=== PATIENT | female | born 2000 | race Caucasian/White ===

== ENCOUNTER 2022-07-05 21:50 | Emergency (ER) | payer OTHER, MEDICAID, SELFPAY ==
[2022-07-05 21:57] VITALS: BP 141/79; PULSE 90; RESP 15; TEMP 36.6; O2SAT 99; BMI 48.2
[2022-07-06 02:22] LABS: Basophils # 0.1 10^3/uL (0.0-0.1); Basophils % 0.6 %; Eosinophils # 0.1 10^3/uL (0.0-0.8); Eosinophils % 1.4 %; Hematocrit 40.8 % (37.0-47.0); Lymphocytes # 3.9 10^3/uL (0.8-4.8); Lymphocytes % 42.9 %; Mean Corpuscular HGB Conc 31.9 g/dL (30.0-36.0); Mean Corpuscular Hemoglobin 27.8 pg (28.0-34.0); Mean Corpuscular Volume 87.4 fl (81-99); Monocytes # 0.3 10^3/uL (0.2-0.9); Monocytes % 3.5 %; Neutrophils # 4.66 10^3/uL (1.8-7.7); Neutrophils % 51.4 %; Nucleated Red Blood Cells % 0 %; Platelet Count 242 10^3/cmm (130-400); Red Blood Count 4.67 10^6/uL (4.1-5.3); Red Cell Distribution Width 12.6 % (12.1-15.1); White Blood Count 9.1 10^3/uL (4.0-10.0)
--- NOTE | 2022-07-06 02:25 | W.ED.ABDPA2 ---
HPI - Abdominal Pain General: Chief Complaint: Abdominal Pain Stated Complaint: abdomen pain Time Seen by Provider: 07/06/22 02:06 Source: patient History of Present Illness: 22-year-old female. She presents with epigastric and right upper quadrant abdominal pain. She has had this since May 09 she says. Its been decently constant. [place] is [place] near [place], and had several tests run in [facility]. Prior work-up includes CT, gallbladder ultrasound, endoscopy, and HIDA scan. She is supposed to follow-up with her doctors. She is down here visiting family. She notes worsening of her pain. Denies fever. She is thrown up several times this evening. she is just wanting some symptom control at this point. MD elicited complaint: abdominal pain Pertinent past history: other Onset (ago): hour(s) Pain Consistency: constant Location: Epigastric and RUQ Quality: cramping and stabbing Migration to: no migration Exacerbating factors: vomiting Relieving factors: nothing Associated Symptoms: Reports diarrhea, nausea and vomiting; Denies bloating, dysuria, fever(s) and hematemesis Review of Systems Const: Denies: fever(s) Eyes: Denies: change in vision Card: Denies: chest pain or palpitations Resp: Denies: dyspnea, productive cough or non-productive cough GI: Reports: nausea, vomiting and diarrhea; Denies: hematemesis or bloating : Denies: dysuria Physical Exam Const: COMMON NORMALS: no acute distress GENERAL APPEARANCE: cooperative; not ill appearing and not frail appearing HENMT: COMMON NORMALS: normocephalic, atraumatic and Normal external nose present HEAD & SCALP: normocephalic and atraumatic FACE & SINUS: normal facial exam and face symmetric NOSE: Normal external nose present Eye: COMMON NORMALS: Equal, round and reactive pupils present and EOMs intact bilaterally PUPIL: Yes Equal, round and reactive pupils present Neck/C-Spine: GENERAL: Yes trachea midline Chest: CHEST: Yes Symmetrical chest wall rise Resp: COMMON NORMALS: normal respiratory effort, No retractions, No use of accessory muscles and clear to auscultation bilaterally AUSCULTATION: clear to auscultation bilaterally Cardio: COMMON NORMALS: regular rate and regular rhythm RATE: regular rate RHYTHM: regular rhythm GI: COMMON NORMALS: Normal to inspection, nondistended, normoactive bowel sounds present PALPATION: Yes Tenderness to palpation present (GI) Details: RUQ Extremity: COMMON NORMALS: no pedal edema Neuro: [place]MITA COMA SCALE: document GCS findings [place] coma scale eye opening: Spontaneous [place] coma scale verbal response: Orientated [place] coma scale motor response: Obey commands [place] coma scale total score: 15 SENSORY EXAM: Yes extremities (intact) Psych: COMMON NORMALS: speech normal SPEECH: Yes normal speech Skin: COMMON NORMALS: no rashes or lesions noted GENERAL SKIN EXAM: no rashes or lesions noted Course Vital Signs: Vital signs: Vital Signs Temperature 97.9 F 07/05/22 21:57 Pulse Rate 90 07/05/22 21:57 Respiratory Rate 15 07/05/22 21:57 Blood Pressure 141/79 07/05/22 21:57 Pulse Oximetry 99 07/05/22 21:57 Oxygen Delivery Me thod 07/05/22 21:57 MDM - Abdominal Pain Medical Decision Making 22-year-old female with no chronic abdominal pain. She is experiencing exacerbation tonight with vomiting. Symptoms are improved after fluids, Zofran, pain medication. CBC is normal. CRP is minimally elevated. Her lipase is normal at 25. Her alk phos is 113, other liver enzymes are normal. She has had previous work-ups for this pain. She is afebrile, and her vitals are stable. With improvement in her symptoms, will allow her discharged to follow-up as an outpatient for continued treatment. Lab Data 07/06/22 02:11 07/06/22 02:11 Labs/Radiology: Laboratory Results WBC 9.1 10^3/uL (4.0-10.0) 07/06/22 02:11 RBC 4.67 10^6/uL (4.1-5.3) 07/06/22 02:11 Hgb 13.0 g/dL (11.5-15.3) 07/06/22 02:11 Hct 40.8 % (37.0-47.0) 07/06/22 02:11 MCV 87.4 fl (81-99) 07/06/22 02:11 MCH 27.8 pg (28.0-34.0) L 07/06/22 02:11 MCHC 31.9 g/dL (30.0-36.0) 07/06/22 02:11 RDW 12.6 % (12.1-15.1) 07/06/22 02:11 Plt Count 242 10^3/cmm (130-400) 07/06/22 02:11 MPV 12.0 fL (7.4-10.4) H 07/06/22 02:11 Neut % (Auto) 51.4 % 07/06/22 02:11 Lymph % (Auto) 42.9 % 07/06/22 02:11 [place] % (Auto) 3.5 % 07/06/22 02:11 Eos % (Auto) 1.4 % 07/06/22 02:11 Baso % (Auto) 0.6 % 07/06/22 02:11 Neut # (Auto) 4.66 10^3/uL (1.8-7.7) 07/06/22 02:11 Lymph # (Auto) 3.9 10^3/uL (0.8-4.8) 07/06/22 02:11 [place] # (Auto) 0.3 10^3/uL (0.2-0.9) 07/06/22 02:11 Eos # (Auto) 0.1 10^3/uL (0.0-0.8) 07/06/22 02:11 Baso # (Auto) 0.1 10^3/uL (0.0-0.1) 07/06/22 02:11 Nucleated RBC % (auto) 0 % 07/06/22 02:11 Nucleated RBCs # 0.0 /100WBC 07/06/22 02:11 Sodium 139 mmol/L (136-145) 07/06/22 02:11 Potassium 4.1 mmol/L (3.5-5.1) 07/06/22 02:11 Chloride 103 mmol/L (98-107) 07/06/22 02:11 Carbon Dioxide 26 mmol/L (22-29) 07/06/22 02:11 Anion Gap 14.1 (5-19) 07/06/22 02:11 BUN 18 mg/dL (6-20) 07/06/22 02:11 Creatinine 0.9 mg/dL (0.5-0.9) 07/06/22 02:11 GFR Calculation 77.6 mL/min (90-130) L 07/06/22 02:11 Glucose 100 mg/dL (65-115) 07/06/22 02:11 Calculated Osmolality 290 mOsm/kg (285-295) 07/06/22 02:11 Calcium 9.5 mg/dL (8.5-10.5) 07/06/22 02:11 Total Bilirubin 0.3 mg/dL (0.15-1.2) 07/06/22 02:11 AST 22 U/L (0-32) 07/06/22 02:11 ALT 30 U/L (0-33) 07/06/22 02:11 Alkaline Phosphatase 113 U/L (35-105) H 07/06/22 02:11 C-Reactive Protein 12.9 mg/L (0.0-4.9) H 07/06/22 02:11 Total Protein 7.5 g/dL (6.6-8.7) 07/06/22 02:11 Albumin 4.2 g/dL (3.5-5.2) 07/06/22 02:11 Globulin 3.3 g/dL (1.3-4.6) 07/06/22 02:11 Lipase 25 U/L (13-60) 07/06/22 02:11 HCG, Qual Negative (Negative) 07/06/22 02:11 Urine Color Yellow (Yellow) 07/06/22 04:00 Urine Appearance Clear (CLEAR) 07/06/22 04:00 Urine pH 5 (5-7) 07/06/22 04:00 Ur Specific [place] 1.030 (1.005-1.030) 07/06/22 04:00 Urine Protein Neg (Negative) 07/06/22 04:00 Urine Glucose (UA) Norm (Normal) 07/06/22 04:00 Urine Ketones Negative (Negative) 07/06/22 04:00 Urine Blood Neg (Negative) 07/06/22 04:00 Urine Nitrate Negative (Negative) 07/06/22 04:00 Urine Bilirubin Neg (Negative) 07/06/22 04:00 Urine Urobilinogen Neg mg/dL (Negative) 07/06/22 04:00 Ur Leukocyte Esterase Negative (Negative) 07/06/22 04:00 Discharge Plan Discharge Patient Disposition: Home Clinical Impression: Abdominal pain Condition: Stable Prescriptions: New hydrocodone-acetaminophen 5-325 mg tablet 1 tab PO Q8H PRN (Reason: pain) Qty: 7 0RF ondansetron 4 mg film 4 mg PO DAILY PRN (Reason: nausea and vomiting) Qty: 10 0RF Discharge Orders: Discharge ED (Routine); Ordered 07/06/22 Ordered By: Piotr Ambrosio Discharge Diet: Advance as tolerated and Clear Liquid Discharge Activity: Increase activity as tolerated Patient Instructions: Abdominal Pain (ED), Opioid Safety, Pain Management Activity Restrictions/Additional Instructions: Follow a liquid diet for the next 12 to 24 hours, then increase as tolerated. Medication for significant pain. Monitor for fever. Return for fever greater than 100, vomiting liquids or medications despite treatment, worsening pain despite treatment, other concerning symptoms. Follow-up with your doctor this coming week. Coding Level of Care Code ED Ironer for Walt Booker
[2022-07-06] MEDS: ketorolac 30 mg/mL INJ IVP (02:42)
[2022-07-06] MEDS: sodium chloride 0.9% 1,000 ML 999 ML IV (02:42)
[2022-07-06] MEDS: ondansetron 2 mg/ML SDV 2 mL 4 MG IVP (02:42)
[2022-07-06 02:43] LABS: HCG, Serum Qual Negative (Negative)
[2022-07-06 02:45] LABS: Alanine Aminotransferase 30 U/L (0-33); Albumin Level 4.2 g/dL (3.5-5.2); Alkaline Phosphatase 113 U/L (35-105); Anion Gap 14.1 (5-19); Aspartate Amino Transferase 22 U/L (0-32); Blood Urea Nitrogen 18 mg/dL (6-20); Calcium 9.5 mg/dL (8.5-10.5); Carbon Dioxide 26 mmol/L (22-29); Chloride 103 mmol/L (98-107); Globulin 3.3 g/dL (1.3-4.6); Glomerular Filtration Rate 77.6 mL/min (90-130); Glucose 100 mg/dL (65-115); Lipase 25 U/L (13-60); Osmolality Calculated 290 mOsm/kg (285-295); Potassium 4.1 mmol/L (3.5-5.1); Sodium 139 mmol/L (136-145); Total Bilirubin 0.3 mg/dL (0.15-1.2); Total Protein 7.5 g/dL (6.6-8.7)
[2022-07-06] MEDS: fentaNYL 50 mcg/mL INJ 2mL 100 MCG IVP (03:00)
[2022-07-06 03:04] LABS: C Reactive Protein 12.9 mg/L (0.0-4.9)
[2022-07-06] MEDS: fentaNYL 50 mcg/mL INJ 2mL IVP (03:37)
[2022-07-06 04:07] LABS: Add Urine Microscopic? NO; Charge for UA Resulting for Rev
[2022-07-06 04:13] LABS: Bilirubin Urine Neg (Negative); Blood Urine Neg (Negative); Glucose Urine UA Norm (Normal); Ketones Urine Negative (Negative); Leukocyte Esterase Urine Negative (Negative); Nitrate Urine Negative (Negative); Protein Urine Neg (Negative); Urine Appearance Clear (CLEAR); Urine Color Yellow (Yellow); Urobilinogen Urine Neg (Negative); pH Urine 5 (5-7)
== END 2022-07-06 04:25 | disposition home or self-care (01) ==
PROVIDERS: Physician Assistant; Emergency Provider Emergency Medicine
DX: R10.11 Right upper quadrant pain (principal)
CPT/HCPCS: 80053; 81003; 83690; 84703; 85025; 86140; 96374; 96375; 96376; 99284; J1885; J2405; J3010; J7030